=== PATIENT | female | born 1985 | race Caucasian/White ===

== ENCOUNTER 2017-02-22 11:37 | Outpatient (CLI) | payer BC ==
[2017-02-22] VITALS (7 sets, daily range): BP systolic 136–177; BP diastolic 87–100
[~2017-02-22] VITALS: Ht 160 cm; Wt 97.0 kg
[2017-02-22] MEDS ORDERED: PRENATAL TABLE1 EACH PO (12:11)
[2017-02-22 12:52] LABS: HEMATOCRIT 36.5 % (36.0-46.0); MCV 88.4 FL (83-99); MEAN PLAT.VOLUME 10.6 uM^3 (9.5-12.4); PLATELET COUNT 293 K/uL (156-360); RBC DIS.WIDTH-CV 13.2 % (11.8-14.6); RBC DIS.WIDTH-SD 42.7 % (39-53); RED BLOOD COUNT 4.13 M/uL (3.80-5.20); WHITE BLOOD COUNT 8.8 K/uL (4.1-10.2)
[2017-02-22 13:04] LABS: ANION GAP 9 MEQ/L (2-14); CHLORIDE 109 MEQ/L (99-109); SAMPLE HEMOLYSIS CHECK 0; SAMPLE ICTERIC CHECK 0; SAMPLE LIPEMIA CHECK 0; SODIUM 138 MEQ/L (136-147); TOTAL BILIRUBIN 0.3 MG/DL (0.0-1.0)
[2017-02-22 13:07] LABS: UR CREATININE CONCENTRATION 141.7 MG/DL
[2017-02-22 13:10] LABS: ALKALINE PHOSPHATASE 88 IU/L (3-129); GFR ESTIMATE (CALCULATED) > 59 mL/min/; GLUCOSE 87 mg/dL (70-99); UREA NITROGEN (BUN) 7 mg/dL (9-23)
[2017-04-16] MEDS ORDERED: ZOFRAN ODT4 MG PO (19:04)
[2017-04-16] MEDS ORDERED: NORCO 5/3251 TABLET PO (19:04)
== END 2017-02-22 15:10 | disposition home or self-care (01) ==
LOC: LDRP-OP 11:37 → 2WEST 11:38 → LDRP-OP 05-14 13:24
PROVIDERS: Obstetrics & Gynecology
DX: O26.893 Other specified pregnancy related conditions, third trimester (principal); O12.13 Gestational proteinuria, third trimester; R03.0 Elevated blood-pressure reading, without diagnosis of hypertension; Z3A.32 32 weeks gestation of pregnancy
CPT/HCPCS: 59025; 80053; 82570; 84156; 85027; G0378

== ENCOUNTER 2017-03-16 12:11 | Inpatient (IN) | payer BC ==
[2017-03-16] VITALS (32 sets, daily range): BP systolic 137–195; BP diastolic 69–115
[~2017-03-16] VITALS: Ht 162.6 cm; Wt 100.0 kg
[~2017-03-16 12:11] MED LIST: PRENATAL TABLE1 EACH PO
[2017-03-16 13:05] LABS: EOSINOPHIL (%) 1.6 % (0-5); EOSINOPHIL COUNT 0.1 K/uL (0-0.3); HEMATOCRIT 35.6 % (36.0-46.0); IMMATURE GRANULOCYTE (%) 0.2 % (0.0-0.7); INSTRUMENT ABS NEUTROPHIL CT 5.5 K/uL; LYMPHOCYTE COUNT 1.7 K/uL (1.0-2.8); MCH 29.2 PG (29.0-34.0); MCHC 32.9 G/DL (30.0-36.0); MCV 88.8 FL (83-99); MEAN PLAT.VOLUME 10.3 uM^3 (9.5-12.4); MONOCYTE (%) 8.3 % (3-12); MONOCYTE COUNT 0.7 K/uL (0-0.8); NEUTROPHIL (%) 68.6 % (45-76); NEUTROPHIL COUNT 5.5 K/uL (1.8-6.4); PLATELET COUNT 238 K/uL (156-360); RBC DIS.WIDTH-CV 12.9 % (11.8-14.6); RBC DIS.WIDTH-SD 42.2 % (39-53); RED BLOOD COUNT 4.01 M/uL (3.80-5.20)
[2017-03-16 13:11] LABS: UR CREATININE CONCENTRATION 63.2 MG/DL
[2017-03-16 13:24] LABS: ANION GAP 7 MEQ/L (2-14); CHLORIDE 109 MEQ/L (99-109); SAMPLE HEMOLYSIS CHECK 0; SAMPLE ICTERIC CHECK 0; SAMPLE LIPEMIA CHECK 0; SODIUM 137 MEQ/L (136-147); TOTAL BILIRUBIN 0.2 MG/DL (0.0-1.0)
[2017-03-16 13:30] LABS: ALKALINE PHOSPHATASE 97 IU/L (3-129); GFR ESTIMATE (CALCULATED) > 59 mL/min/; GLUCOSE 82 mg/dL (70-99); UREA NITROGEN (BUN) 10 mg/dL (9-23)
[2017-03-16 16:25] LABS: POINT-OF-CARE METER ID UU13113692
[2017-03-16 18:39] LABS: POINT-OF-CARE METER ID UU13113692
[2017-03-17] VITALS (36 sets, daily range): BP systolic 101–150; BP diastolic 51–81
[2017-03-17 00:35] LABS: POINT-OF-CARE METER ID UU13113692
[2017-03-17 03:35] LABS: POINT-OF-CARE METER ID UU13113801
[2017-03-17 07:36] LABS: MAGNESIUM 4.1 mg/dl (1.3-2.7)
[2017-03-17 08:00] LABS: POINT-OF-CARE METER ID UU13113692
[2017-03-17 08:58] LABS: HEMATOCRIT 35.1 % (36.0-46.0); MCH 29.8 PG (29.0-34.0); MCHC 33.3 G/DL (30.0-36.0); MCV 89.5 FL (83-99); MEAN PLAT.VOLUME 11.1 uM^3 (9.5-12.4); PLATELET COUNT 263 K/uL (156-360); RBC DIS.WIDTH-CV 13.2 % (11.8-14.6); RED BLOOD COUNT 3.92 M/uL (3.80-5.20); WHITE BLOOD COUNT 12.1 K/uL (4.1-10.2)
[2017-03-17 10:00] LABS: POINT-OF-CARE METER ID UU13113692
[2017-03-17 12:07] LABS: ALKALINE PHOSPHATASE 94 IU/L (3-129); ANION GAP 13 MEQ/L (2-14); CHLORIDE 106 MEQ/L (99-109); GFR ESTIMATE (CALCULATED) > 59 mL/min/; POTASSIUM 4.2 MEQ/L (3.7-5.4); SODIUM 136 MEQ/L (136-147); TOTAL BILIRUBIN 0.2 MG/DL (0.0-1.0); UREA NITROGEN (BUN) 8 mg/dL (9-23)
[2017-03-17 12:12] LABS: GLUCOSE 131 mg/dL (70-99)
[2017-03-17 13:56] LABS: POINT-OF-CARE METER ID UU13113692
[2017-03-17 18:17] LABS: POINT-OF-CARE METER ID UU13113692
[2017-03-17 23:25] LABS: POINT-OF-CARE METER ID UU13113692
[2017-03-18] VITALS (29 sets, daily range): BP systolic 112–179; BP diastolic 53–86
[2017-03-18 02:24] LABS: POINT-OF-CARE METER ID UU13113692
[2017-03-18 07:32] LABS: POINT-OF-CARE METER ID UU13113692
[2017-03-18 09:16] LABS: HEMATOCRIT 34.9 % (36.0-46.0); MCV 87.9 FL (83-99); MEAN PLAT.VOLUME 10.4 uM^3 (9.5-12.4); PLATELET COUNT 269 K/uL (156-360); RBC DIS.WIDTH-CV 13.2 % (11.8-14.6); RBC DIS.WIDTH-SD 42.5 % (39-53); RED BLOOD COUNT 3.97 M/uL (3.80-5.20); WHITE BLOOD COUNT 12.1 K/uL (4.1-10.2)
[2017-03-18 09:43] LABS: ALKALINE PHOSPHATASE 96 IU/L (3-129); ANION GAP 12 MEQ/L (2-14); CHLORIDE 107 MEQ/L (99-109); GFR ESTIMATE (CALCULATED) > 59 mL/min/; GLUCOSE 146 mg/dL (70-99); MAGNESIUM 4.9 mg/dl (1.3-2.7); POTASSIUM 3.9 MEQ/L (3.7-5.4); SAMPLE HEMOLYSIS CHECK 0; SAMPLE ICTERIC CHECK 0; SAMPLE LIPEMIA CHECK 0; SODIUM 136 MEQ/L (136-147); UREA NITROGEN (BUN) 8 mg/dL (9-23)
[2017-03-18 09:44] LABS: TOTAL BILIRUBIN 0.3 MG/DL (0.0-1.0)
[2017-03-19] VITALS (18 sets, daily range): BP systolic 126–179; BP diastolic 56–80
[2017-03-19 08:18] LABS: HEMATOCRIT 29.6 % (36.0-46.0); MCH 29.1 PG (29.0-34.0); MCHC 32.8 G/DL (30.0-36.0); MCV 88.9 FL (83-99); MEAN PLAT.VOLUME 10.2 uM^3 (9.5-12.4); PLATELET COUNT 201 K/uL (156-360); RBC DIS.WIDTH-CV 13.2 % (11.8-14.6); RBC DIS.WIDTH-SD 43.1 % (39-53); RED BLOOD COUNT 3.33 M/uL (3.80-5.20); WHITE BLOOD COUNT 15.6 K/uL (4.1-10.2)
[2017-03-19 08:41] LABS: ALKALINE PHOSPHATASE 86 IU/L (3-129); ANION GAP 7 MEQ/L (2-14); CHLORIDE 107 MEQ/L (99-109); GFR ESTIMATE (CALCULATED) > 59 mL/min/; GLUCOSE 125 mg/dL (70-99); POTASSIUM 3.9 MEQ/L (3.7-5.4); SAMPLE HEMOLYSIS CHECK 0; SAMPLE ICTERIC CHECK 0; SAMPLE LIPEMIA CHECK 0; SODIUM 137 MEQ/L (136-147); UREA NITROGEN (BUN) 8 mg/dL (9-23)
[2017-03-19 08:42] LABS: MAGNESIUM 3.1 mg/dl (1.3-2.7); TOTAL BILIRUBIN 0.5 MG/DL (0.0-1.0)
[2017-03-19 13:04] LABS: HEMATOCRIT 28.6 % (36.0-46.0); MCH 29.7 PG (29.0-34.0); MCHC 33.2 G/DL (30.0-36.0); MCV 89.4 FL (83-99); MEAN PLAT.VOLUME 10.9 uM^3 (9.5-12.4); PLATELET COUNT 219 K/uL (156-360); RBC DIS.WIDTH-CV 13.2 % (11.8-14.6); RBC DIS.WIDTH-SD 43.8 % (39-53); WHITE BLOOD COUNT 15.3 K/uL (4.1-10.2)
[2017-03-20 07:10] VITALS: BP 123/69
[2017-03-20 07:26] LABS: EOSINOPHIL (%) 1.3 % (0-5); EOSINOPHIL COUNT 0.1 K/uL (0-0.3); HEMATOCRIT 22.2 % (36.0-46.0); IMMATURE GRANULOCYTE (%) 0.6 % (0.0-0.7); IMMATURE GRANULOCYTE COUNT 0.1 K/uL; INSTRUMENT ABS NEUTROPHIL CT 5.9 K/uL; LYMPHOCYTE COUNT 3.1 K/uL (1.0-2.8); MCH 29.9 PG (29.0-34.0); MCHC 32.9 G/DL (30.0-36.0); MEAN PLAT.VOLUME 10.8 uM^3 (9.5-12.4); MONOCYTE (%) 8.8 % (3-12); MONOCYTE COUNT 0.9 K/uL (0-0.8); NEUTROPHIL (%) 58.3 % (45-76); NEUTROPHIL COUNT 5.9 K/uL (1.8-6.4); PLATELET COUNT 189 K/uL (156-360); RBC DIS.WIDTH-CV 13.2 % (11.8-14.6); RBC DIS.WIDTH-SD 44.6 % (39-53); WHITE BLOOD COUNT 10.2 K/uL (4.1-10.2)
[2017-03-20 07:28] LABS: RED BLOOD COUNT 2.44 M/uL (3.80-5.20)
[2017-03-20 07:51] LABS: ALKALINE PHOSPHATASE 68 IU/L (3-129); ANION GAP 7 MEQ/L (2-14); CHLORIDE 110 MEQ/L (99-109); GFR ESTIMATE (CALCULATED) > 59 mL/min/; GLUCOSE 89 mg/dL (70-99); POTASSIUM 4.3 MEQ/L (3.7-5.4); SAMPLE HEMOLYSIS CHECK 0; SAMPLE ICTERIC CHECK 0; SAMPLE LIPEMIA CHECK 0; SODIUM 140 MEQ/L (136-147); TOTAL BILIRUBIN 0.2 MG/DL (0.0-1.0); UREA NITROGEN (BUN) 12 mg/dL (9-23)
[2017-03-20 12:44] VITALS: BP 156/77
[2017-03-20 16:20] VITALS: BP 140/68
[2017-03-20 20:10] VITALS: BP 171/82
[2017-03-20 20:45] VITALS: BP 146/67
[2017-03-20 22:59] VITALS: BP 137/69
[2017-03-21 03:21] VITALS: BP 119/56
[2017-03-21] MEDS ORDERED: IBUPROFEN800 MG PO (06:43)
[2017-03-21] MEDS ORDERED: LABETALOL HCL100 MG PO (06:43)
[2017-03-21 07:44] LABS: HEMATOCRIT 22.7 % (36.0-46.0); MCH 30.2 PG (29.0-34.0); MCV 91.5 FL (83-99); MEAN PLAT.VOLUME 10.8 uM^3 (9.5-12.4); PLATELET COUNT 216 K/uL (156-360); RBC DIS.WIDTH-CV 13.2 % (11.8-14.6); RBC DIS.WIDTH-SD 43.7 % (39-53); RED BLOOD COUNT 2.48 M/uL (3.80-5.20); WHITE BLOOD COUNT 8.6 K/uL (4.1-10.2)
[2017-03-21 07:45] VITALS: BP 137/70
[2017-03-21 08:06] LABS: ALKALINE PHOSPHATASE 79 IU/L (3-129); ANION GAP 9 MEQ/L (2-14); CHLORIDE 106 MEQ/L (99-109); GFR ESTIMATE (CALCULATED) > 59 mL/min/; GLUCOSE 94 mg/dL (70-99); POTASSIUM 4.6 MEQ/L (3.7-5.4); SAMPLE HEMOLYSIS CHECK 0; SAMPLE ICTERIC CHECK 0; SAMPLE LIPEMIA CHECK 0; SODIUM 139 MEQ/L (136-147); TOTAL BILIRUBIN 0.2 MG/DL (0.0-1.0); UREA NITROGEN (BUN) 11 mg/dL (9-23)
[2017-03-21] MEDS ORDERED: FERROUS SULFAT325 MG PO (10:11)
[2017-03-21 12:29] VITALS: BP 145/65
== END 2017-03-21 13:15 | disposition home or self-care (01) | DRG 774 ==
LOC: LDRP-OP 12:11 → 2WEST 12:13 → LDRP-OP 05-14 15:20
PROVIDERS: Advanced Practice Midwife; Obstetrics & Gynecology; Obstetrics & Gynecology Gynecology
DX: O11.4 Pre-existing hypertension with pre-eclampsia, complicating childbirth (principal); O10.92 Unspecified pre-existing hypertension complicating childbirth; O72.1 Other immediate postpartum hemorrhage; O63.9 Long labor, unspecified; O24.420 Gestational diabetes mellitus in childbirth, diet controlled; O99.02 Anemia complicating childbirth; D64.9 Anemia, unspecified; O99.214 Obesity complicating childbirth; E66.9 Obesity, unspecified; Z68.36 Body mass index [BMI] 36.0-36.9, adult; Z3A.36 36 weeks gestation of pregnancy; Z37.0 Single live birth
CPT/HCPCS: 80053; 82570; 82948; 83735; 84156; 85025; 85027; 86850; 86900; 86901; 87081; 88307; C1755; G0378; J0702; J1815; J2540; J3475; J7120

== ENCOUNTER → 2017-04-16 | Emergency (ER) | payer BC ==
[~2017-04-16] VITALS: Ht 160 cm; Wt 91.6 kg
[~2017-04-16] MED LIST changes: +FERROUS SULFAT325 MG PO; +IBUPROFEN800 MG PO; +LABETALOL HCL100 MG PO; +NORCO 5/3251 TABLET PO; +ZOFRAN ODT4 MG PO
[2017-04-16 14:17] LABS: HEMATOCRIT 38.8 % (36.0-46.0); MCH 28.7 PG (29.0-34.0); MCV 89.8 FL (83-99); MEAN PLAT.VOLUME 9.3 uM^3 (9.5-12.4); PLATELET COUNT 342 K/uL (156-360); RBC DIS.WIDTH-CV 12.9 % (11.8-14.6); RBC DIS.WIDTH-SD 42.4 % (39-53); RED BLOOD COUNT 4.32 M/uL (3.80-5.20); WHITE BLOOD COUNT 7.8 K/uL (4.1-10.2)
[2017-04-16 14:30] LABS: CHLORIDE 105 mEq/L (99-109); POTASSIUM 4.3 mEq/L (3.7-5.4); SODIUM 140 mEq/L (136-147)
[2017-04-16 14:32] LABS: GLUCOSE 107 mg/dL (70-99)
[2017-04-16 14:33] LABS: ANION GAP 8 MEQ/L (2-14)
[2017-04-16 14:34] LABS: TOTAL BILIRUBIN 0.3 mg/dL (0.0-1.0)
[2017-04-16 14:36] LABS: ALKALINE PHOSPHATASE 138 IU/L (3-129)
[2017-04-16 14:37] LABS: GFR ESTIMATE (CALCULATED) > 59 mL/min/; UREA NITROGEN (BUN) 11 mg/dL (9-23)
[2017-04-16 14:47] LABS: QUANTITATIVE HCG < 4.0 MIU/ML
[2017-04-16 15:45] LABS: ADD MIUA? YES; BILIRUBIN NEGATIVE; BLOOD SMALL; COLOR YELLOW ((YELLOW)); GLUCOSE (STRIP) NEGATIVE; KETONES NEGATIVE; LEUKOCYTES TRACE; NITRITE NEGATIVE; PROTEIN (STRIP) NEGATIVE; SPECIFIC GRAVITY 1.016 (1.000-1.030); UROBILINOGEN 0.2 MG/DL (0.2-1.0)
[2017-04-16 15:51] LABS: BACTERIA RARE /HPF; EPITHELIAL CELLS 1+ /HPF; MUCUS TRACE /LPF; RED BLOOD CELLS 0-5 /HPF (0-5); UCUL ADDED? NO; UNCLASSIFIED CRYSTALS 2+ /HPF; WHITE BLOOD CELLS 0-5 /HPF (0-5)
[2017-04-16 16:01] LABS: LIPASE 511 U/L (1.0-51.0)
[2017-04-16 19:20] VITALS: BP 157/88
== END | disposition home or self-care (01) ==
LOC: EME 13:55
DX: O90.89 Other complications of the puerperium, not elsewhere classified (principal); K85.90 Acute pancreatitis without necrosis or infection, unspecified; K76.0 Fatty (change of) liver, not elsewhere classified
CPT/HCPCS: 71020; 76705; 80053; 81003; 83690; 84702; 85027; 93005; 99281; 99283